=== PATIENT | male | born 1975 | race Caucasian/White ===

== ENCOUNTER 2024-10-06 08:51 | Emergency (ER) | payer OTHER ==
[~2024-10-06] VITALS: Ht 170.2 cm; Wt 65.0 kg
[2024-10-06 11:59] VITALS: TEMP 97.8
[2024-10-06 12:11] VITALS: BP 100/77; PULSE 80; RESP 16; O2SAT 99
[2024-10-06 13:37] LABS: BASOPHILS % (AUTO) 1.1 % (0.0-2.0); EOSINOPHILS % (AUTO) 2.5 % (1.0-6.0); HEMATOCRIT 47.7 % (41-53); HEMOGLOBIN 15.4 g/dL (13.5-17.5); LYMPHOCYTES # (AUTO) 2.1 K/uL (1.0-4.8); LYMPHOCYTES % (AUTO) 30.7 % (22.0-44.0); MEAN CORPUSCULAR HGB CONC 32.3 G/dL (31.0-37.0); MEAN CORPUSCULAR VOLUME 84 fL (80-100); MONOCYTES # (AUTO) 0.6 K/uL (0.1-1.0); MONOCYTES % (AUTO) 8.1 % (2.0-9.0); NEUTROPHILS % (AUTO) 57.6 % (40.0-70.0); PLATELET COUNT (AUTO) 280 K/uL (150-450); RED BLOOD CELL COUNT(AUTO) 5.71 MIL/uL (4.50-5.90); RED CELL DISTRIBUTION WIDTH 14.5 % (11.5-14.5)
[2024-10-06 13:47] LABS: ANION GAP 9 mmol/L (8-16); CALCIUM, TOTAL 8.8 mg/dL (8.8-10.5); CARBON DIOXIDE 30 mmol/L (22-29); CHLORIDE 104 mmol/L (98-107); CREATININE 1.02 mg/dL (0.60-1.30); GLOMERULAR FILTR. RATE CALC > 60 mL/min (>60); GLUCOSE,RANDOM 97 mg/dL (70-110); LIPASE 34 U/L (16-77); POTASSIUM 3.5 mmol/L (3.5-5.1); SODIUM SERUM 143 mmol/L (136-145); UREA NITROGEN, BLOOD 14 mg/dL (7-18)
[2024-10-06 13:53] LABS: TROPONIN I-HIGH SENSITIVITY 4 ng/L (<76)
[2024-10-06 14:37] LABS: ALCOHOL, BLOOD (SERUM) 92 mg/dL (0-10)
[2024-10-06 14:46] LABS: LACTIC ACID 3.1 mmol/L (0.4-2.0)
== END 2024-10-06 16:59 | disposition home or self-care (01) ==
LOC: EMS 08:51
DX: F10.129 Alcohol abuse with intoxication, unspecified (principal); E86.0 Dehydration; R41.82 Altered mental status, unspecified; Y90.6 Blood alcohol level of 120-199 mg/100 ml
CPT/HCPCS: 99284; 80048; 83605; 83690; 84484; 85025; 36415; 93005; G0480